=== PATIENT | male | born 1990 | race Two or more races ===

== ENCOUNTER 2022-02-18 20:14 | Emergency (ER) | payer OTHER ==
[~2022-02-18] VITALS: Ht 188 cm; Wt 97.5 kg
--- NOTE | 2022-02-18 20:20 | NUR ---
GARRETT 80 FROM URGENT CARE C/O ALLERGIC REACTION S/P DOG HAIR EXPOSURE; SYMPTOMS PRESENTED AT 1900. 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 PT DENIES SOB, RASHES AT THIS TIME. TOLERATING R/A WELL AT 98%. CONNECTED PT TO POX AND MONITOR.
--- NOTE | 2022-02-18 20:32 | NUR ---
RAMBO MOORE - FATHER [phone]
[2022-02-18] MEDS ORDERED: EPIN0.3P3 IM (20:59)
[2022-02-18] MEDS ORDERED: PRED50TA PO (20:59)
[2022-02-18 23:01] VITALS: BP 127/74
--- NOTE | 2022-02-18 23:01 | NUR ---
IV removed. Catheter intact and site benign. Pressure and 4x4 applied to site. No bleeding noted.
--- NOTE | 2022-02-18 23:05 | NUR ---
Patient discharged to home in stable condition.RX Written and verbal after care instructions given. Patient verbalizes understanding of instruction. PT ambulatory with a steady gait
== END 2022-02-18 23:05 | disposition home or self-care (01) ==
LOC: ER 20:16
DX: T78.49XA Other allergy, initial encounter (principal); J30.81 Allergic rhinitis due to animal (cat) (dog) hair and dander; Z88.8 Allergy status to other drugs, medicaments and biological substances; Z79.899 Other long term (current) drug therapy; X58.XXXA Exposure to other specified factors, initial encounter